=== PATIENT | female | born 1980 | race Caucasian/White ===

== ENCOUNTER 2021-05-13 09:03 | Emergency (ER) | payer MEDICAID ==
[~2021-05-13] VITALS: Ht 154.9 cm; Wt 56.6 kg
--- NOTE | 2021-05-13 09:51 | Diagnostic Imaging Report ---
INDICATION: Chest pain and chest tightness. TIME OF EXAM: 9:36 AM No prior studies are available for comparison. FINDINGS: The heart size is normal. The pulmonary vascularity is unremarkable. The lungs are clear. No infiltrate, effusion or pneumothorax is detected. IMPRESSION: No acute cardiopulmonary process is detected. Dictated by: Dictated on workstation # [id number]
[2021-05-13] MEDS ORDERED: RT-ALBUTEROL HFA 8.5 GM INHALER IH ONE (09:56)
[2021-05-13] MEDS ORDERED: RT-ALBUTEROL HFA 8.5 GM INHALER IH STA (09:57)
[2021-05-13 10:11] LABS: BASOPHILS % (AUTO) 1 % (0-10); EOSINOPHILS % (AUTO) 0 % (0-10); HEMATOCRIT 42 % (35-52); HEMOGLOBIN 13.7 g/dL (11.5-16.0); LYMPHOCYTES # (AUTO) 1.1 10^3/uL (1.0-4.0); LYMPHOCYTES % (AUTO) 21 % (12-44); MEAN CORPUSCULAR HEMOGLOBIN 32 pg (25-34); MEAN CORPUSCULAR HGB CONC 33 g/dL (32-36); MEAN CORPUSCULAR VOLUME 96 fL (80-99); MEAN PLATELET VOLUME 8.3 fL (9.0-12.2); MONOCYTES # (AUTO) 0.6 10^3/uL (0.0-1.0); MONOCYTES % (AUTO) 11 % (0-12); NEUTROPHILS # (AUTO) 3.6 10^3/uL (1.8-7.8); NEUTROPHILS % (AUTO) 67 % (42-75); PLATELET COUNT 344 10^3/uL (130-400); WHITE BLOOD COUNT 5.4 10^3/uL (4.3-11.0)
[2021-05-13 10:16] LABS: ALBUMIN 4.2 GM/DL (3.2-4.5); POTASSIUM 4.4 MMOL/L (3.6-5.0)
[2021-05-13 10:19] LABS: TOTAL PROTEIN 7.3 GM/DL (6.4-8.2)
[2021-05-13 10:21] LABS: BILIRUBIN,TOTAL 0.2 MG/DL (0.1-1.0)
[2021-05-13 10:22] LABS: CREATININE SERUM 0.68 MG/DL (0.60-1.30)
[2021-05-13 10:25] LABS: MAGNESIUM 2.1 MG/DL (1.6-2.4)
[2021-05-13 10:29] LABS: PROTHROMBIN TIME PATIENT 13.5 SEC (12.2-14.7)
--- NOTE | 2021-05-13 11:12 | ED Chest Pain ---
General Chief Complaint: Chest Pain Stated Complaint: CHEST TIGHTNESS Nursing Triage Note: PT AMB TO RM 4 WITH COMPLAINT OF CHEST TIGHTNESS. STATES STARTED TUESDAY AFTER PLAYING IN THE PARK WITH CHILDREN. Source: patient Exam Limitations: no limitations History of Present Illness Date Seen by Provider: May 13, 2021 Time Seen by Provider: 09:12 Initial Comments This 41-year-old woman presents to the emergency room with complaints of chest tightness and discomfort, particularly with deep breathing. She first noticed this after playing at the park with her children 2 days ago. Symptoms have persisted. She denies any fever, chills, nausea, vomiting, diarrhea, or change in taste or smell. She has not been vaccinated for COVID-19 or influenza. Symptoms are worse when lying flat and she is not sleeping. She is a smoker but denies drug or alcohol use. She denies any significant health history. [facility] in [place] is her primary care office. She seems rather fidgety and anxious about her condition. Allergies and Home Medications Allergies Coded Allergies: No Known Drug Allergies (Unverified , 05/13/21) Patient Home Medication List Home Medication List Reviewed: Yes Oseltamivir Phosphate (Tamiflu) 75 Mg Cap, 75 MG PO BID Prescribed by: MARIO ABRAHAM on 05/13/21 1113 Prednisone (Prednisone) 20 Mg Tab, 40 MG PO DAILY Prescribed by: MARIO ABRAHAM on 05/13/21 1113 Review of Systems Review of Systems Constitutional: no symptoms reported EENTM: No Symptoms Reported Respiratory: See HPI Cardiovascular: See HPI Gastrointestinal: No Symptoms Reported Genitourinary: No Symptoms Reported Musculoskeletal: no symptoms reported Skin: no symptoms reported Psychiatric/Neurological: See HPI Endocrine: No Symptoms Reported Hematologic/Lymphatic: No Symptoms Reported Past Sqzekvu-Iefcni-Qiccqx Hx Patient Social History Tobacco Use?: Yes Tobacco type used: Cigarettes Smoking Status: Current Everyday Smoker Use of E-Cig and/or Vaping dev: No Substance use?: No Alcohol Use?: No Pt feels they are or have been: No Immunizations Up To Date Influenza Vaccine Up-to-Date: No; Not Current Past Medical History Surgeries: No Respiratory: No Cardiac: No Neurological: No : No Genitourinary: No Gastrointestinal: No Musculoskeletal: No Endocrine: No HEENT: No Cancer: No Psychosocial: No Integumentary: No Physical Exam Vital Signs Vital Signs - First Documented 12/22/21 09:13 Temp 36.9 Pulse 91 Resp 16 B/P (MAP) 123/53 (76) Pulse Ox 96 O2 Delivery Room Air Capillary Refill : Less Than 3 Seconds Height, Weight, BMI Height: '" Weight: lbs. oz. kg; 23.00 BMI Method: General Appearance: WD/WN, Anxious HEENT: PERRL/EOMI, TMs Normal, Normal ENT Inspection, Pharynx Normal Neck: Normal Inspection Respiratory: No Accessory Muscle Use, No Respiratory Distress; No Crackles; Wheezing, Other (Prolonged expiratory phase) Cardiovascular: Regular Rate, Rhythm, No Edema, No Murmur Gastrointestinal: Non Tender, Soft; No Distended Extremity: Normal Inspection, Non Tender, No Calf Tenderness, No Pedal Edema Neurologic/Psychiatric: Alert, Oriented x3, No Motor/Sensory Deficits, skein bleacher II- XII Norm as Tested, Other (Mildly anxious) Skin: Normal Color, Warm/Dry Progress/Results/Core Measures Results/Orders Lab Results Laboratory Tests Test 05/13/21 10:04 05/13/21 10:06 Range/Units White Blood Count 5.4 4.3-11.0 10^3/uL Red Blood Count 4.31 3.80-5.11 10^6/uL Hemoglobin 13.7 11.5-16.0 g/dL Hematocrit 42 35-52 % Mean Corpuscular Volume 96 80-99 fL Mean Corpuscular Hemoglobin 32 25-34 pg Mean Corpuscular Hemoglobin Concent 33 32-36 g/dL Red Cell Distribution Width 13.1 10.0-14.5 % Platelet Count 344 130-400 10^3/uL Mean Platelet Volume 8.3 L 9.0-12.2 fL Immature Granulocyte % (Auto) 0 % Neutrophils (%) (Auto) 67 42-75 % Lymphocytes (%) (Auto) 21 12-44 % Monocytes (%) (Auto) 11 0-12 % Eosinophils (%) (Auto) 0 0-10 % Basophils (%) (Auto) 1 0-10 % Neutrophils # (Auto) 3.6 1.8-7.8 10^3/uL Lymphocytes # (Auto) 1.1 1.0-4.0 10^3/uL Monocytes # (Auto) 0.6 0.0-1.0 10^3/uL Eosinophils # (Auto) 0.0 0.0-0.3 10^3/uL Basophils # (Auto) 0.0 0.0-0.1 10^3/uL Immature Granulocyte # (Auto) 0.0 0.0-0.1 10^3/uL Prothrombin Time 13.5 12.2-14.7 SEC INR Comment 1.0 0.8-1.4 Activated Partial Thromboplast Time 31 24-35 SEC D-Dimer < 0.27 0.00-0.49 UG/ML Sodium Level 137 135-145 MMOL/L Potassium Level 4.4 3.6-5.0 MMOL/L Chloride Level 105 98-107 MMOL/L Carbon Dioxide Level 22 21-32 MMOL/L Anion Gap 10 5-14 MMOL/L Blood Urea Nitrogen 7 7-18 MG/DL Creatinine 0.68 0.60-1.30 MG/DL Estimat Glomerular Filtration Rate 94 BUN/Creatinine Ratio 10 Glucose Level 77 70-105 MG/DL Calcium Level 9.0 8.5-10.1 MG/DL Corrected Calcium 8.8 8.5-10.1 MG/DL Magnesium Level 2.1 1.6-2.4 MG/DL Total Bilirubin 0.2 0.1-1.0 MG/DL Aspartate Amino Transf (AST/SGOT) 22 5-34 U/L Alanine Aminotransferase (ALT/SGPT) 19 0-55 U/L Alkaline Phosphatase 56 40-136 U/L Myoglobin 29.5 10.0-92.0 NG/ML Troponin I < 0.028 <0.028 NG/ML C-Reactive Protein High Sensitivity 1.75 H 0.00-0.50 MG/DL B-Type Natriuretic Peptide 33.7 <100.0 PG/ML Total Protein 7.3 6.4-8.2 GM/DL Albumin 4.2 3.2-4.5 GM/DL Serum Test, Qualitative NEGATIVE NEGATIVE Influenza Type A (RT-PCR) Detected H Not Detecte Influenza Type B (RT-PCR) Not Detected Not Detecte SARS-CoV-2 RNA (RT-PCR) Not Detected Not Detecte My Orders Orders - MARIO SHAW MD Cbc With Automated Diff (05/13/21 09:12) Magnesium (05/13/21 09:12) Chest 1 View, Ap/Pa Only (05/13/21 09:12) Ekg Tracing (05/13/21 09:12) Comprehensive Metabolic Panel (05/13/21 09:12) Myoglobin Serum (05/13/21 09:12) Protime With Inr (05/13/21 09:12) Partial Thromboplastin Time (05/13/21 09:12) O2 (05/13/21 09:12) Monitor-Rhythm Ecg Trace Only (05/13/21 09:12) Ed Iv/Invasive Line Start (05/13/21 09:12) Troponin I Oriana (05/13/21 09:12) Albuterol Inhaler (Albuterol) (05/13/21 09:57) Covid 19 Inhouse Test (05/13/21 09:57) Influenza A And B By Pcr (05/13/21 09:57) Bnp Oriana (05/13/21 09:57) Hs C Reactive Protein (05/13/21 09:57) Fibrin Degradation Products (05/13/21 09:57) Hcg,Qualitative Serum (05/13/21 09:57) Albuterol Inhaler (Albuterol) (05/13/21 09:56) Ketorolac Injection (Toradol Injection) (05/13/21 11:15) Medications Given in ED Current Medications Medications Dose Ordered Sig/Oskar Route Start Time Stop Time Status Last Admin Dose Admin Ketorolac Tromethamine 30 mg ONCE ONCE IVP 05/13/21 11:15 05/13/21 11:16 DC 05/13/21 11:23 30 MG Vital Signs/I&O 05/13/21 05/13/21 09:13 11:28 Temp 36.9 Pulse 91 86 Resp 16 16 B/P (MAP) 123/53 (76) 128/50 Pulse Ox 96 96 O2 Delivery Room Air Room Air Blood Pressure Mean: 76 Progress Progress Note : Progress Note Patient appeared to have bronchospasm on exam. Inhaler was used and did improve her breathing. Cardiac work-up was unremarkable. Influenza a was detected on nasal swabs. Patient was offered Tamiflu which was prescribed. She was sent home with the inhaler. Steroids were additionally prescribed. Patient was encouraged to get vaccination for COVID-19 and to quit smoking. Initial ECG Impression Date: May 13, 2021 Initial ECG Impression Time: 09:29 Initial ECG Rate: 81 Initial ECG Rhythm: Normal Sinus Initial ECG Intervals: Normal Comment Sinus rhythm with subtle ST changes likely representing early repolarization in this young patient. No abnormal intervals or axis deviation. No diagnostic ischemic ST elevation or depression. Diagnostic Imaging Diagonstic Imaging: Xray Plain Films/CT/US/NM/MRI: chest Departure Impression Primary Impression: Influenza A Additional Impressions: Chest pain, pleuritic Bronchospasm Disposition: 01 HOME, SELF-CARE Condition: Improved Departure-Patient Inst. Decision time for Depature: 11:00 Referrals: [facility] (PCP/Family) Primary Care Physician Patient Instructions: Flu Add. Discharge Instructions: Drink plenty of clear liquids to stay well-hydrated. You may take ibuprofen up to 600 mg every 6 hours and/or Tylenol (acetaminophen) up to 1000 mg every 6 hours as needed for pain, fever, or chest discomfort. Use your inhaler up to 4 puffs in a 4-hour period of time for shortness of breath or wheezing. Complete the entire 10 doses of Tamiflu. Take all of the doses even if you are feeling better to avoid rebounding symptoms. Avoid contact with others to avoid transmitting the flu virus. Work toward quitting smoking as rapidly as possible. Seek assistance from your primary care provider if you need help. Consider obtaining Covid and influenza vaccines when you recover from this acute illness. Call with questions or concerns. Return to the ER if you have worsening symptoms. All discharge instructions reviewed with patient and/or family. Voiced understanding. Scripts Prednisone (Prednisone) 20 Mg Tab 40 MG PO DAILY, #6 TAB 0 Refills Prov: MARIO SHAW MD 05/13/21 Oseltamivir Phosphate (Tamiflu) 75 Mg Cap 75 MG PO BID, #10 CAP Prov: MARIO SHAW MD 05/13/21 Copy Copies To 1: ILANA CHAMPION JOSHUA T MD May 13, 2021 11:12
[2021-05-13] MEDS ORDERED: OSLT75C PO (11:13)
[2021-05-13] MEDS ORDERED: PRD20T PO (11:13)
[2021-05-13] MEDS ORDERED: KETOROLAC 30 MG/ML VIAL IVP ONE (11:15)
[2021-05-13 11:28] VITALS: BP 128/50
== END 2021-05-13 11:28 | disposition home or self-care (01) ==
LOC: ER 09:05
DX: J10.1 Influenza due to other identified influenza virus with other respiratory manifestations (principal); R07.81 Pleurodynia; J98.01 Acute bronchospasm; F17.210 Nicotine dependence, cigarettes, uncomplicated; Z20.822 Contact with and (suspected) exposure to COVID-19
CPT/HCPCS: 36415; 71045; 80053; 83735; 83874; 83880; 84484; 84703; 85025; 85379; 85610; 85730; 86141; 87636; 93005

== ENCOUNTER 2021-09-30 08:32 | Emergency (ER) | payer MEDICAID ==
[~2021-09-30] VITALS: Ht 157 cm; Wt 56.0 kg
[~2021-09-30 08:32] MED LIST: OSLT75C PO; PRD20T PO
--- NOTE | 2021-09-30 09:04 | ED Back Pain ---
General Chief Complaint: Back Problems Stated Complaint: PINCH NERVE Nursing Triage Note: ARRIVED VIA WC TO ROOM 09 WITH RIGHT SIDED LOWER BACK PAIN STARTING YESTERDAY AM. SHE THINKS SHE HAS PINCHED NERVE IN HER BACK. Source of Information: Patient History of Present Illness Date Seen by Provider: September 30, 2021 Time Seen by Provider: 08:55 Initial Comments PT ARRIVES VIA POV FROM HOME C/O RIGHT LOWER BACK PAIN AND LOWER LUMBAR PAIN SINCE YESTERDAY MORNING, ON WAKING NO RADIATION OF PAIN NO PARESTHESIAS OR MOTOR DEFICITS NO LOSS OF BOWEL OR BLADDER CONTROL NO URINARY SYMPTOMS NO NAUSEA/VOMITING NO INJURY OR UNUSUAL ACTIVITY. NO HISTORY OF SIMILAR NO CHRONIC MEDICAL PROBLEMS NO RELIEF WITH IBUPROFEN AT 0400 THIS AM LMP--ENDED YESTERDAY. NORMAL. NO CONTROL Other Comments PCP: [facility] Allergies and Home Medications Allergies Coded Allergies: No Known Drug Allergies (Unverified , 05/13/21) Patient Home Medication List Nitrofurantoin Monohyd/M-Cryst (Macrobid 100 mg Capsule) 100 Mg Capsule, 1 TAB PO BID Prescribed by: NIDHI AVILA on 09/30/21 0957 Oseltamivir Phosphate (Tamiflu) 75 Mg Cap, 75 MG PO BID Prescribed by: MARIO ABRAHAM on 05/13/21 111 Prednisone (Prednisone) 20 Mg Tab, 40 MG PO DAILY Prescribed by: MARIO ABRAHAM on 05/13/21 111 Prednisone (Prednisone) 10 Mg Tab.ds.pk, 10 MG PO DAILY Prescribed by: NIDHI AVILA on 09/30/2157 Tizanidine HCl (Zanaflex) 4 Mg Capsule, 4 MG PO TID Prescribed by: NIDHI AVILA on 09/30/21 0957 Review of Systems Constitutional: no symptoms reported Respiratory: no symptoms reported Cardiovascular: no symptoms reported Gastrointestinal: no symptoms reported Genitourinary: no symptoms reported : No LMP: September 23, 2021 Control/STD Prophylaxis: None Musculoskeletal: see HPI, back pain Skin: no symptoms reported Psychiatric/Neurological: No Symptoms Reported Past Nshetxb-Npbwyp-Kggtmq Hx Patient Social History Tobacco Use?: Yes Tobacco type used: Cigarettes Smoking Status: Current Everyday Smoker Substance use?: No Alcohol Use?: Yes Alcohol Frequency: Once in a while Past Medical History Surgeries: No Respiratory: No Cardiac: No Neurological: No Genitourinary: No Gastrointestinal: No Musculoskeletal: No Endocrine: No HEENT: No Cancer: No Psychosocial: No Integumentary: No Blood Disorders: No Physical Exam Vital Signs Vital Signs - First Documented 09/30/21 08:45 Temp 36.1 Pulse 91 Resp 16 B/P (MAP) 98/70 (79) Pulse Ox 95 O2 Delivery Room Air Capillary Refill : Less Than 3 Seconds Height, Weight, BMI Height: '" Weight: lbs. oz. kg; 22.00 BMI Method: General Appearance: WD/WN, Other (LOOKS UNCOMFORTABLY, LAYING PARTIALLY ON LEFT SIDE. ) Neck: Normal Inspection Cardiovascular: Regular Rate, Rhythm, No Murmur Respiratory: Normal Breath Sounds Gastrointestinal: Non Tender, Soft Back: Other (LOWER LUMBAR TENDERNESS, AND PIN POINT TENDERNESS OVER RIGHT SI JOINT. ) Neurologic/Psychiatric: Alert, Oriented x3, No Motor/Sensory Deficits, colorer machine II- XII Norm as Tested Skin: Normal Color, Warm/Dry; No Rash; Tattoos/Piercings (MULITPLE TATTOOS) Progress/Results/Core Measures Results/Orders Lab Results Laboratory Tests Test 09/30/21 08:58 09/30/21 09:06 Range/Units Urine Color YELLOW Urine Clarity CLEAR Urine pH 6.5 5-9 Urine Specific Thoreau <=1.005 1.016-1.022 Urine Protein NEGATIVE NEGATIVE Urine Glucose (UA) NEGATIVE NEGATIVE Urine Ketones NEGATIVE NEGATIVE Urine Nitrite NEGATIVE NEGATIVE Urine Bilirubin NEGATIVE NEGATIVE Urine Urobilinogen 0.2 < = 1.0 MG/DL Urine Leukocyte Esterase NEGATIVE NEGATIVE Urine RBC (Auto) 1+ H NEGATIVE Urine RBC 5-10 H /HPF Urine WBC 0-2 /HPF Urine Squamous Epithelial Cells 5-10 /HPF Urine Crystals NONE /LPF Urine Bacteria MODERATE H /HPF Urine Casts NONE /LPF Urine Mucus NEGATIVE /LPF Urine Culture Indicated YES Urine Test NEGATIVE NEGATIVE White Blood Count 8.6 4.3-11.0 10^3/uL Red Blood Count 4.59 3.80-5.11 10^6/uL Hemoglobin 14.4 11.5-16.0 g/dL Hematocrit 43 35-52 % Mean Corpuscular Volume 94 80-99 fL Mean Corpuscular Hemoglobin 31 25-34 pg Mean Corpuscular Hemoglobin Concent 33 32-36 g/dL Red Cell Distribution Width 13.1 10.0-14.5 % Platelet Count 458 H 130-400 10^3/uL Mean Platelet Volume 8.2 L 9.0-12.2 fL Immature Granulocyte % (Auto) 0 % Neutrophils (%) (Auto) 61 42-75 % Lymphocytes (%) (Auto) 33 12-44 % Monocytes (%) (Auto) 5 0-12 % Eosinophils (%) (Auto) 0 0-10 % Basophils (%) (Auto) 1 0-10 % Neutrophils # (Auto) 5.2 1.8-7.8 10^3/uL Lymphocytes # (Auto) 2.8 1.0-4.0 10^3/uL Monocytes # (Auto) 0.4 0.0-1.0 10^3/uL Eosinophils # (Auto) 0.0 0.0-0.3 10^3/uL Basophils # (Auto) 0.1 0.0-0.1 10^3/uL Immature Granulocyte # (Auto) 0.0 0.0-0.1 10^3/uL Sodium Level 140 135-145 MMOL/L Potassium Level 4.2 3.6-5.0 MMOL/L Chloride Level 106 98-107 MMOL/L Carbon Dioxide Level 25 21-32 MMOL/L Anion Gap 9 5-14 MMOL/L Blood Urea Nitrogen 14 7-18 MG/DL Creatinine 0.75 0.60-1.30 MG/DL Estimat Glomerular Filtration Rate 101 BUN/Creatinine Ratio 19 Glucose Level 85 70-105 MG/DL Calcium Level 9.6 8.5-10.1 MG/DL Corrected Calcium 9.2 8.5-10.1 MG/DL Total Bilirubin 0.3 0.1-1.0 MG/DL Aspartate Amino Transf (AST/SGOT) 15 5-34 U/L Alanine Aminotransferase (ALT/SGPT) 15 0-55 U/L Alkaline Phosphatase 58 40-136 U/L Total Protein 7.5 6.4-8.2 GM/DL Albumin 4.5 3.2-4.5 GM/DL My Orders Orders - NIDHI AVILA DO Urine Bedside (09/30/21 08:55) Ua Culture If Indicated (09/30/21 08:55) Ed Iv/Invasive Line Start (09/30/21 08:58) Cbc With Automated Diff (09/30/21 08:58) Comprehensive Metabolic Panel (09/30/21 08:58) Drug Screen Stat (Urine) (09/30/21 08:58) Hcg,Qualitative Urine (09/30/21 08:58) Urine Culture (09/30/21 08:58) Ct Abd/Pelvis Wo(Kidney Stone) (09/30/21 09:14) Ct Lumbar Spine Wo (09/30/21 09:14) Ketorolac Injection (Toradol Injection) (09/30/21 09:30) Orphenadrine Inj (Ed Only) (Norflex Inje (09/30/21 09:30) Medications Given in ED Current Medications Medications Dose Ordered Sig/Oskar Route Start Time Stop Time Status Last Admin Dose Admin Ketorolac Tromethamine 30 mg ONCE ONCE IVP 09/30/21 09:30 09/30/21 09:31 DC 09/30/21 09:36 30 MG Orphenadrine Citrate 60 mg ONCE ONCE IV 09/30/21 09:30 09/30/21 09:31 DC 09/30/21 09:36 60 MG Vital Signs/I&O 09/30/21 08:45 Temp 36.1 Pulse 91 Resp 16 B/P (MAP) 98/70 (79) Pulse Ox 95 O2 Delivery Room Air Blood Pressure Mean: 79 Departure Impression Primary Impression: Lumbar degenerative disc disease Additional Impression: UTI (urinary tract infection) Disposition: 01 HOME, SELF-CARE Condition: Stable Departure-Patient Inst. Decision time for Depature: 09:55 Referrals: [facility] (PCP/Family) Primary Care Physician Patient Instructions: Urinary Tract Infection, Adult ED, Degenerative Disc Disease (DC) Add. Discharge Instructions: ALTERNATE ICE AND HEAT TO SORE AREA AT 20 MINUTE INTERVALS NO LIFTING OVER 5 LBS, NO TWISTING OR BENDING AT WAIST FOLLOW UP WITH [facility] IN 1-2 DAYS FOR FURTHER CARE--CALL TODAY TO SCHEDULE APPOINTMENT All discharge instructions reviewed with patient and/or family. Voiced understanding. Scripts Tramadol HCl (Ultram) 50 Mg Tablet 50 MG PO Q4H for Pain, #20 TAB Prov: TANISHA AVILAA K DO 09/30/21 Nitrofurantoin Monohyd/M-Cryst (Macrobid 100 mg Capsule) 100 Mg Capsule 1 TAB PO BID, #20 CAP Prov: MARGARITA,NIDHI K DO 09/30/21 Tizanidine HCl (Zanaflex) 4 Mg Capsule 4 MG PO TID for Spasms, #15 CAP Prov: NIDHI AVILA DO 09/30/21 Prednisone (Prednisone) 10 Mg Tab.ds.pk 10 MG PO DAILY, #42 EA Take 6 tabs(60mg)daily,decrease by 1 tab(10mg)every other day. Prov: NIDHI AVILA DO 09/30/21 NIDHI AVILA DO September 30, 2021 09:04
[2021-09-30 09:05] LABS: BILIRUBIN,URINE NEGATIVE (NEGATIVE); CLARITY,URINE CLEAR; COLOR,URINE YELLOW; GLUCOSE, URINE (UA) NEGATIVE (NEGATIVE); KETONES,URINE NEGATIVE (NEGATIVE); LEUKOCYTE ESTERASE ,URINE NEGATIVE (NEGATIVE); NITRITE,URINE NEGATIVE (NEGATIVE); PH,URINE 6.5 (5-9); PROTEIN,URINE NEGATIVE (NEGATIVE)
[2021-09-30 09:12] LABS: WBC,URINE 0-2 /HPF
[2021-09-30 09:13] LABS: BACTERIA,URINE MODERATE /HPF
[2021-09-30 09:14] LABS: BASOPHILS # (AUTO) 0.1 10^3/uL (0.0-0.1); BASOPHILS % (AUTO) 1 % (0-10); EOSINOPHILS % (AUTO) 0 % (0-10); HEMATOCRIT 43 % (35-52); HEMOGLOBIN 14.4 g/dL (11.5-16.0); LYMPHOCYTES # (AUTO) 2.8 10^3/uL (1.0-4.0); LYMPHOCYTES % (AUTO) 33 % (12-44); MEAN CORPUSCULAR HEMOGLOBIN 31 pg (25-34); MEAN CORPUSCULAR HGB CONC 33 g/dL (32-36); MEAN CORPUSCULAR VOLUME 94 fL (80-99); MEAN PLATELET VOLUME 8.2 fL (9.0-12.2); MONOCYTES # (AUTO) 0.4 10^3/uL (0.0-1.0); MONOCYTES % (AUTO) 5 % (0-12); NEUTROPHILS # (AUTO) 5.2 10^3/uL (1.8-7.8); NEUTROPHILS % (AUTO) 61 % (42-75); PLATELET COUNT 458 10^3/uL (130-400); WHITE BLOOD COUNT 8.6 10^3/uL (4.3-11.0)
[2021-09-30 09:27] LABS: ALBUMIN 4.5 GM/DL (3.2-4.5); POTASSIUM 4.2 MMOL/L (3.6-5.0)
[2021-09-30 09:28] LABS: CALCIUM 9.6 MG/DL (8.5-10.1)
[2021-09-30 09:30] LABS: TOTAL PROTEIN 7.5 GM/DL (6.4-8.2)
[2021-09-30] MEDS ORDERED: KETOROLAC 30 MG/ML VIAL IVP ONE (09:30)
[2021-09-30] MEDS ORDERED: ORPHENADRINE 60 MG/2 ML (NORFLEX) AMP (ED ONLY) IV ONE (09:30)
[2021-09-30 09:31] LABS: BILIRUBIN,TOTAL 0.3 MG/DL (0.1-1.0)
[2021-09-30 09:33] LABS: CREATININE SERUM 0.75 MG/DL (0.60-1.30)
--- NOTE | 2021-09-30 09:42 | Diagnostic Imaging Report ---
PROCEDURE: CT lumbar spine without contrast. TECHNIQUE: Multiple contiguous axial images were obtained through the lumbar spine without the use of intravenous contrast. Sagittal and coronal reformations were then performed. Auto Exposure Controls were utilized during the CT exam to meet ALARA standards for radiation dose reduction. INDICATION: Flank pain. FINDINGS: Kidneys are almost entirely in the hkyhl-ru-pvmw. There is a partially visualized exophytic right renal cystic appearing lesion but no radiopaque urinary tract stone. There is no hydroureteronephrosis. The bladder below the bbceu-uw-jokm. The aorta is nonaneurysmal. No paravertebral mass, hemorrhage or fluid collection. Lumbar statures are normal. The alignment anatomic. The pedicles and pars are intact. Osteophyte disc material at L2-L3 results in no significant canal or foraminal stenosis. Minimal degenerative changes at L3-L4 and L4-L5 also without stenosis. Substantial degenerative changes at the L5-S1 with the disc space narrowing, endplate sclerosis, and marginal osteophytes. Findings result in no significant canal stenosis, however, result in wqtozccz-tj-gpbxgv left and tybw-mc-ponetbdj right neural foraminal narrowing. IMPRESSION: 1. Normal alignment. No acute lumbar pathology. No fracture identified. 2. Degenerative changes greatest at the L5-S1 levels result in left greater than right foraminal stenoses on a chronic basis. 3. Cystic lesion right kidney partially visualized. Dictated by: Dictated on workstation # [id number]
--- NOTE | 2021-09-30 09:44 | Diagnostic Imaging Report ---
PROCEDURE: CT urinary tract, rule out kidney stone. TECHNIQUE: Multiple contiguous axial images were obtained through the abdomen and pelvis without the use of intravenous contrast. Auto Exposure Controls were utilized during the CT exam to meet ALARA standards for radiation dose reduction. INDICATION: Right-sided low back pain beginning yesterday. Right flank pain. Suspect kidney stones. COMPARISON: None FINDINGS: There is dependent atelectasis in the lung bases. The heart is normal in size. The liver demonstrates no focal lesions on this noncontrast exam. The spleen appears normal. The pancreas is unremarkable. The adrenal glands appear normal. The right kidney has a simple appearing cyst which measures 3.5 cm in diameter. There is no hydronephrosis. No obstructing calculi are seen in the kidneys bilaterally. The bowel loops are nondistended without obstruction. The appendix is normal. The colon wall appears mildly thick, but this is felt to be due to nondistention. No free fluid or free air is seen. There is mild calcific atherosclerosis, somewhat greater than expected for age. No acute osseous abnormality is seen. There are degenerative changes at L5-S1. Please refer to separate CT of the lumbar spine. IMPRESSION: 1. No renal calculi or hydronephrosis. Simple appearing cyst in the right kidney. 2. Mild calcific atherosclerosis, greater than expected for age. Dictated by: Dictated on workstation # [id number]
[2021-09-30 09:50] LABS: HCG,QUALITATIVE URINE NEGATIVE (NEGATIVE)
[2021-09-30] MEDS ORDERED: PRED10TA22 PO (09:57)
[2021-09-30] MEDS ORDERED: NITR-65 PO (09:57)
[2021-09-30] MEDS ORDERED: TIZA4CAP PO (09:57)
[2021-09-30 09:58] LABS: AMPHETAMINE SCREEN, URINE NEGATIVE (NEGATIVE); BARBITURATE SCREEN URINE NEGATIVE (NEGATIVE); BENZODIAZEPINES SCREEN URINE NEGATIVE (NEGATIVE); CANNABINOID SCREEN, URINE POSITIVE (NEGATIVE); COCAINE SCREEN URINE NEGATIVE (NEGATIVE); METHADONE STAT NEGATIVE (NEGATIVE); OPIATE SCREEN URINE NEGATIVE (NEGATIVE); OXYCODONE STAT NEGATIVE (NEGATIVE); PROPOXYPHENE STAT NEGATIVE (NEGATIVE); TRICYCLIC ANTIDEPRESSANTS SCRE NEGATIVE (NEGATIVE)
[2021-09-30] MEDS ORDERED: TRAM-42 PO (09:58)
[2021-09-30] MEDS ORDERED: fentaNYL INJ 100 MCG/2 ML AMP IVP ONE (10:15)
[2021-09-30 10:58] VITALS: BP 99/47
== END 2021-09-30 10:58 | disposition home or self-care (01) ==
LOC: EDUNIT# 08:32 → ER 08:34
DX: M51.36 Other intervertebral disc degeneration, lumbar region (principal); N39.0 Urinary tract infection, site not specified; F17.210 Nicotine dependence, cigarettes, uncomplicated; Z32.02 Encounter for pregnancy test, result negative
CPT/HCPCS: 36415; 72131; 74176; 80053; 80306; 81000; 84703; 85025; 87088

== ENCOUNTER 2022-08-12 20:06 | Emergency (ER) | payer MEDICAID ==
[~2022-08-12 20:06] MED LIST changes: +NITR-65 PO; +PRED10TA22 PO; +TIZA4CAP PO; +TRAM-42 PO
[2022-08-12 20:30] LABS: BASOPHILS % (AUTO) 0 % (0-10); EOSINOPHILS # (AUTO) 0.3 10^3/uL (0.0-0.3); EOSINOPHILS % (AUTO) 3 % (0-10); HEMATOCRIT 38 % (35-52); HEMOGLOBIN 13.1 g/dL (11.5-16.0); LYMPHOCYTES # (AUTO) 3.9 10^3/uL (1.0-4.0); LYMPHOCYTES % (AUTO) 39 % (12-44); MEAN CORPUSCULAR HEMOGLOBIN 32 pg (25-34); MEAN CORPUSCULAR HGB CONC 34 g/dL (32-36); MEAN CORPUSCULAR VOLUME 92 fL (80-99); MEAN PLATELET VOLUME 8.5 fL (9.0-12.2); MONOCYTES # (AUTO) 0.7 10^3/uL (0.0-1.0); MONOCYTES % (AUTO) 7 % (0-12); NEUTROPHILS # (AUTO) 5.1 10^3/uL (1.8-7.8); NEUTROPHILS % (AUTO) 51 % (42-75); PLATELET COUNT 344 10^3/uL (130-400)
[2022-08-12] MEDS ORDERED: ONDANSETRON 4 MG/2 ML (SDV) Z0FRAN IVP ONE (20:45)
[2022-08-12] MEDS ORDERED: LACTATED RINGERS 1,000 ML IV ONE ×2 (20:45→22:30)
[2022-08-12 20:49] LABS: ALANINE AMINOTRANSFERASE 18 U/L (0-55); ALBUMIN 4.3 GM/DL (3.2-4.5); ALKALINE PHOSPHATASE 46 U/L (40-136); BILIRUBIN,TOTAL 0.4 MG/DL (0.1-1.0); BUN/CREATININE RATIO 18; CALCIUM 9.2 MG/DL (8.5-10.1); CARBON DIOXIDE 21 MMOL/L (21-32); CHLORIDE 105 MMOL/L (98-107); CREATININE SERUM 0.74 MG/DL (0.60-1.30); GFR ESTIMATED 102; GLUCOSE 134 MG/DL (70-105); POTASSIUM 3.6 MMOL/L (3.6-5.0); SODIUM 138 MMOL/L (135-145); TOTAL PROTEIN 6.8 GM/DL (6.4-8.2)
--- NOTE | 2022-08-12 20:52 | ED General ---
General Chief Complaint: Chest Pain Stated Complaint: BODY DOESN'T FEEL RIGHT Nursing Triage Note: PT TO RM 6 BY WITH C/O "NOT FEELING RIGHT" SINCE ABOUT 1 HOUR MANAGER TREASURY. PT STATES HER LEGS FEEL "FUNNY", DIZZINESS, CHEST TIGHTNESS, AND NAUSEA WHEN STANDING. PT BENT OVER IN WC PRIOR TO TRIAGE. PT REPORTS HAS TOOTH ABCESS/PAIN AND TAKES AMOXICILLIN, IS SCHEDULED TO SEE DENTIST. PT CRYING AT TIME OF TRIAGE. Source of Information: Patient History of Present Illness Date Seen by Provider: Aug 12, 2022 Time Seen by Provider: 20:17 Initial Comments PT ARRIVES VIA POV FROM HOME, WITH A MALE, WANTS WHEELCHAIR ON ARRIVAL PT STATES SHE FELT FINE AT WORK TODAY, CAME HOME, AND THEN STARTED HAVING SUDDEN SEVERE PAIN IN HER TOOTH STATES SHE HAS CHRONIC DENTAL PROBLEMS AND LEFT LOWER MOLAR TOOTH OR TEETH "BROKE OFF" A FEW WEEKS AGO. SHE HAS AN APPOINTMENT 08/25/22 WITH UNKNOWN DENTIST. SHE STARTED TAKING LEFT OVER AMOXIL FROM PRIOR PROBLEM WITH THIS TOOTH/TEETH. TOOK 1 DOSE TONIGHT JUST PRIOR TO ARRIVAL ( PER MED RECONCILIATION, AMOXIL PRESCRIBED 07/16/22 BY [facility] [employer] SUPERVISOR AT [facility] ) SHE ALSO TOOK IBUPROFEN 1 HOUR AGO. SHE HAS TAKEN BOTH OF THESE MEDICATIONS MANY TIMES AND NEVER HAD PROBLEMS AFTER HER TOOTH STARTED HURTING, SHE BEGAN TO "FEEL FUNNY ALL OVER" STATES "MY BODY JUST DOESN'T FEEL RIGHT" STATES " MY LEGS FEEL WARM, AND SOMETIMES IT FEELS A LITTLE TINGLY IN MY CALVES AND FEET" THEN SHE STARTED FEELING NAUSEATED, NO VOMITING. NO DIARRHEA. NO ABDOMINAL PAIN STATES SHE STARTED FEELING DIZZY AND ON ARRIVAL STATES HER CHEST IS NOW STARTING TO FEEL A LITTLE TIGHT. PT IS CRYING UNCONTROLLABLY AND HYPERVENTILATING AND NEAR-HYSTERIA ON ARRIVAL. SHE ARRIVES LEANING OVER THE SIDE OF THE WHEELCHAIR SHE HAS NOT BEEN ILL IN ANY OTHER WAY RECENTLY. SHE DENIES ANY CHRONIC MEDICAL PROBLEMS, AND DOES NOT TAKE ANY DAILY MEDICATIONS LMP--2-3 WEEKS AGO, NORMAL. NO CONTROL. PCP: [facility] Allergies and Home Medications Allergies Coded Allergies: No Known Drug Allergies (Unverified , 05/13/21) Patient Home Medication List Amoxicillin (Amoxicillin) 875 Mg Tablet, 875 MG PO BID Prescribed by: NIDHI AVILA on 08/12/22 0058 Hydroxyzine Pamoate (Hydroxyzine Pamoate) 50 Mg Capsule, 50 MG PO Q6H PRN for ANXIETY Prescribed by: NIDHI AVILA on 08/12/222237 Nitrofurantoin Monohyd/M-Cryst (Macrobid 100 mg Capsule) 100 Mg Capsule, 1 TAB PO BID Prescribed by: NIDHI AVILA on 09/30/21 09 Oseltamivir Phosphate (Tamiflu) 75 Mg Cap, 75 MG PO BID Prescribed by: MARIO ABRAHAM on 05/13/21 111 Prednisone (Prednisone) 20 Mg Tab, 40 MG PO DAILY Prescribed by: MARIO ABRAHAM on 05/13/21 111 Prednisone (Prednisone) 10 Mg Tab.ds.pk, 10 MG PO DAILY Prescribed by: NIDHI AVILA on 09/30/21956 Tizanidine HCl (Zanaflex) 4 Mg Capsule, 4 MG PO TID Prescribed by: NIDHI AVILA on 09/30/2157 Tramadol HCl (Ultram) 50 Mg Tablet, 50 MG PO Q4H Prescribed by: NIDHI AVILA on 09/30/21 0958 Past Pdcsrlf-Zhelor-Lunauc Hx Patient Social History Tobacco Use?: Yes Tobacco type used: Cigarettes Smoking Status: Current Everyday Smoker Substance use?: Yes Substance type: Marijuana Alcohol Use?: No Pt feels they are or have been: No Past Medical History Surgeries: No Respiratory: No Cardiac: No Neurological: No Genitourinary: No Gastrointestinal: No Musculoskeletal: No Endocrine: No HEENT: No Cancer: No Psychosocial: No Integumentary: No Blood Disorders: No Physical Exam Vital Signs Vital Signs - First Documented 08/12/22 20:16 Pulse 84 Resp 22 B/P (MAP) 143/100 (114) Pulse Ox 99 O2 Delivery Room Air Capillary Refill : Less Than 3 Seconds Height, Weight, BMI Height: '" Weight: lbs. oz. kg; BMI Method: General Appearance: Other (BEHAVIOR NOTED ABOVE. PT WITH RAPID, ERRATIC SPEECH, SOMEWHAT TANGENTIAL. CRYING UNCONTROLLABLY AND HYPERVENTILATING. CONSTANT MOVEMENTS. . KEEPS EYES CLOSED, DOES NOT MAKE EYE CONTACT AT ANY TIME. 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 Skin: Normal Color, Warm/Dry; No Rash; Tattoos/Piercings Progress/Results/Core Measures Suspected Sepsis SIRS Temperature: Pulse: 84 Respiratory Rate: 22 Laboratory Tests 08/12/22 20:25: White Blood Count 10.0 Blood Pressure 143 /100 Mean: 114 Laboratory Tests 08/12/22 20:25: Creatinine 0.74, Platelet Count 344, Total Bilirubin 0.4 Results/Orders Lab Results Laboratory Tests Test 08/12/22 20:25 08/12/22 20:47 08/12/22 21:04 Range/Units White Blood Count 10.0 4.3-11.0 10^3/uL Red Blood Count 4.14 3.80-5.11 10^6/uL Hemoglobin 13.1 11.5-16.0 g/dL Hematocrit 38 35-52 % Mean Corpuscular Volume 92 80-99 fL Mean Corpuscular Hemoglobin 32 25-34 pg Mean Corpuscular Hemoglobin Concent 34 32-36 g/dL Red Cell Distribution Width 12.8 10.0-14.5 % Platelet Count 344 130-400 10^3/uL Mean Platelet Volume 8.5 L 9.0-12.2 fL Immature Granulocyte % (Auto) 0 % Neutrophils (%) (Auto) 51 42-75 % Lymphocytes (%) (Auto) 39 12-44 % Monocytes (%) (Auto) 7 0-12 % Eosinophils (%) (Auto) 3 0-10 % Basophils (%) (Auto) 0 0-10 % Neutrophils # (Auto) 5.1 1.8-7.8 10^3/uL Lymphocytes # (Auto) 3.9 1.0-4.0 10^3/uL Monocytes # (Auto) 0.7 0.0-1.0 10^3/uL Eosinophils # (Auto) 0.3 0.0-0.3 10^3/uL Basophils # (Auto) 0.0 0.0-0.1 10^3/uL Immature Granulocyte # (Auto) 0.0 0.0-0.1 10^3/uL Sodium Level 138 135-145 MMOL/L Potassium Level 3.6 3.6-5.0 MMOL/L Chloride Level 105 98-107 MMOL/L Carbon Dioxide Level 21 21-32 MMOL/L Anion Gap 12 5-14 MMOL/L Blood Urea Nitrogen 13 7-18 MG/DL Creatinine 0.74 0.60-1.30 MG/DL Estimat Glomerular Filtration Rate 102 BUN/Creatinine Ratio 18 Glucose Level 134 H 70-105 MG/DL Calcium Level 9.2 8.5-10.1 MG/DL Corrected Calcium 9.0 8.5-10.1 MG/DL Magnesium Level 2.0 1.6-2.4 MG/DL Total Bilirubin 0.4 0.1-1.0 MG/DL Aspartate Amino Transf (AST/SGOT) 19 5-34 U/L Alanine Aminotransferase (ALT/SGPT) 18 0-55 U/L Alkaline Phosphatase 46 40-136 U/L Total Creatine Kinase 181 H 29-168 U/L Creatine Kinase MB 2.3 <6.6 NG/ML Myoglobin 30.2 10.0-92.0 NG/ML Troponin I < 0.028 <0.028 NG/ML Total Protein 6.8 6.4-8.2 GM/DL Albumin 4.3 3.2-4.5 GM/DL Free Thyroxine 1.12 0.70-1.48 NG/DL TSH [place] Testing 0.18 L 0.35-4.94 UIU/ML Serum Test, Qualitative NEGATIVE NEGATIVE Serum Alcohol < 10 <10 MG/DL Urine Color YELLOW Urine Clarity CLEAR Urine pH 7.0 5-9 Urine Specific [place] 1.020 1.016-1.022 Urine Protein TRACE H NEGATIVE Urine Glucose (UA) NEGATIVE NEGATIVE Urine Ketones NEGATIVE NEGATIVE Urine Nitrite NEGATIVE NEGATIVE Urine Bilirubin NEGATIVE NEGATIVE Urine Urobilinogen 1.0 < = 1.0 MG/DL Urine Leukocyte Esterase NEGATIVE NEGATIVE Urine RBC (Auto) NEGATIVE NEGATIVE Urine RBC NONE /HPF Urine WBC RARE /HPF Urine Squamous Epithelial Cells 25-50 H /HPF Urine Crystals PRESENT H /LPF Urine Amorphous Sediment LARGE [place] URATES H /LPF Urine Bacteria MODERATE H /HPF Urine Casts NONE /LPF Urine Mucus SMALL H /LPF Urine Culture Indicated YES Urine Opiates Screen NEGATIVE NEGATIVE Urine Oxycodone Screen NEGATIVE NEGATIVE Urine Methadone Screen NEGATIVE NEGATIVE Urine Propoxyphene Screen NEGATIVE NEGATIVE Urine Barbiturates Screen NEGATIVE NEGATIVE Ur Tricyclic Antidepressants Screen NEGATIVE NEGATIVE Urine Phencyclidine Screen NEGATIVE NEGATIVE Urine Amphetamines Screen NEGATIVE NEGATIVE Urine Methamphetamines Screen NEGATIVE NEGATIVE Urine Benzodiazepines Screen NEGATIVE NEGATIVE Urine Cocaine Screen NEGATIVE NEGATIVE Urine Cannabinoids Screen POSITIVE H NEGATIVE Influenza Type A (RT-PCR) Not Detected Not Detecte Influenza Type B (RT-PCR) Not Detected Not Detecte SARS-CoV-2 RNA (RT-PCR) Detected H Not Detecte My Orders Orders - NIDHI AVILA DO Ed Iv/Invasive Line Start (08/12/22 20:16) Urine Bedside (08/12/22 20:16) Monitor-Rhythm Ecg Trace Only (08/12/22 20:16) Alcohol (08/12/22 20:16) Cbc With Automated Diff (08/12/22 20:16) Comprehensive Metabolic Panel (08/12/22 20:16) Drug Screen Stat (Urine) (08/12/22 20:16) Magnesium (08/12/22 20:16) Thyroid Analyzer (08/12/22 20:16) Ua Culture If Indicated (08/12/22 20:16) Covid 19 Inhouse Test (08/12/22 20:16) Influenza A And B By Pcr (08/12/22 20:16) Isolation Central Supply Req (08/12/22 20:16) Ekg Tracing (08/12/22 20:22) Creatine Kinase (08/12/22 20:33) Creatine Kinase Mb (08/12/22 20:33) Myoglobin Serum (08/12/22 20:33) Troponin I [place] (08/12/22 20:33) Hcg,Qualitative Serum (08/12/22 20:33) Ed Iv/Invasive Line Start (08/12/22 20:33) Lactated Ringers (Lr 1000 Ml Iv Solution (08/12/22 20:45) Ondansetron Injection (Zofran Injectio (08/12/22 20:45) Ketorolac Injection (Toradol Injection) (08/12/22 21:15) Diphenhydramine Injection (Benadryl Inje (08/12/22 21:15) Free T4 (Free Thyroxine) (08/12/22 20:25) Urine Culture (08/12/22 20:47) Ed Iv/Invasive Line Start (08/12/22 22:19) Lactated Ringers (Lr 1000 Ml Iv Solution (08/12/22 22:30) Medications Given in ED Current Medications Medications Dose Ordered Sig/Oskar Route Start Time Stop Time Status Last Admin Dose Admin Diphenhydramine HCl 50 mg ONCE ONCE IVP 08/12/22 21:15 08/12/22 21:16 DC 08/12/22 21:16 50 MG Ketorolac Tromethamine 30 mg ONCE ONCE IVP 08/12/22 21:15 08/12/22 21:16 DC 08/12/22 21:16 30 MG Lactated Ringer's 1,000 ml @ 0 mls/hr Q0M ONCE IV 08/12/22 20:45 08/12/22 20:46 DC 08/12/22 20:50 1,000 MLS/HR Lactated Ringer's 1,000 ml @ 0 mls/hr Q0M ONCE IV 08/12/22 22:30 08/12/22 22:31 DC 08/12/22 22:35 0 MLS/HR Ondansetron HCl 4 mg ONCE ONCE IVP 08/12/22 20:45 08/12/22 20:46 DC 08/12/22 20:49 4 MG Vital Signs/I&O 08/12/22 20:16 Pulse 84 Resp 22 B/P (MAP) 143/100 (114) Pulse Ox 99 O2 Delivery Room Air Capillary Refill : Less Than 3 Seconds Blood Pressure Mean: 114 Progress Note : Progress Note GIVEN: -IV FLUIDS -ZOFRAN -TORADOL -BENADRYL NO COMPLAINTS OF CHEST PAIN FOR REMAINDER OF ER STAY VITALS STABLE SYMPTOMS IMPROVED AT DISMISSAL PT IS COVID + OTHER LABS ARE ALL REASSURING, AND NO EVIDENCE OF LIFE THREATENING PROCESS AT THIS TIME REVIEWED PRIOR RECORDS--2 ER VISITS, ON IN 2020 AND ONE IN 2021 FOR UNRELATED COMPLAINTS. DISCUSSED TEST RESULTS, SYMPTOMATIC TREATMENT, MEDICATIONS, NEED FOR FOLLOW UP AND RETURN PRECAUTIONS DISCUSSED WITH PT AND MALE IN ROOM. OFFERED PAXLOVID TREATMENT, AND PT DECLINES AT THIS TIME. ECG Initial ECG Impression Date: Aug 12, 2022 Initial ECG Impression Time: 20:30 Initial ECG Rate: 84 Initial ECG Rhythm: Normal Sinus Initial ECG Intervals TX 133 QRS 87 QT/QTC 363/404 Initial ECG Comparisson: No Previous ECG Available Comment INTERPRETED BY ME Departure Impression Primary Impression: COVID-19 virus infection Additional Impressions: Dental caries Anxiety hyperventilation Volume depletion Disposition: HOME, SELF-CARE Condition: Improved Departure-Patient Inst. Referrals: [facility] (PCP/Family) Primary Care Physician Patient Instructions: Anxiety, Adult ED, COVID-19 (DC), Dental Pain ED, Hyperventilation, Tooth Decay, Adult (DC), Dehydration, Adult ED Add. Discharge Instructions: HOME, REST LOTS OF CLEAR LIQUIDS--WATER, BROTH, JELLO, GATORADE DRINK ENOUGH SO YOU ARE URINATING EVERY 2-3 HOURS WHILE AWAKE YOU MAY TAKE TYLENOL 1 GRAM PLUS MOTRIN 800 MG 4 TIMES A DAY FOR PAIN OR FEVER YOU MAY TAKE OVER THE COUNTER COUGH AND COLD MEDICATIONS IF YOU DEVELOP THOSE SYMPTOMS QUARANTINE X 7 DAYS KEEP YOUR APPOINTMENT WITH DENTIST SCHEDULED RETURN TO ER IF SYMPTOMS WORSEN All discharge instructions reviewed with patient and/or family. Voiced understanding. Scripts Amoxicillin (Amoxicillin) 875 Mg Tablet 875 MG PO BID, #20 TAB Prov: NIDHI AVILA DO 08/12/22 Hydroxyzine Pamoate (Hydroxyzine Pamoate) 50 Mg Capsule 50 MG PO Q6H PRN for ANXIETY, #15 CAP Prov: NIDHI AVILA DO 08/12/22 Work/School Note: Work Release Form Date Seen in the Emergency Department: Aug 12, 2022 Return to Work: Aug 20, 2022 NIDHI AVILA DO Aug 12, 2022 20:52
[2022-08-12 20:53] LABS: BILIRUBIN,URINE NEGATIVE (NEGATIVE); CLARITY,URINE CLEAR; COLOR,URINE YELLOW; GLUCOSE, URINE (UA) NEGATIVE (NEGATIVE); KETONES,URINE NEGATIVE (NEGATIVE); LEUKOCYTE ESTERASE ,URINE NEGATIVE (NEGATIVE); NITRITE,URINE NEGATIVE (NEGATIVE); PROTEIN,URINE TRACE (NEGATIVE)
[2022-08-12 21:09] LABS: TSH (THYROID ANALYZER) 0.18 UIU/ML (0.35-4.94)
[2022-08-12] MEDS ORDERED: diphenhydrAMINE 50 MG/ML INJ (BENADRYL) IVP ONE (21:15)
[2022-08-12] MEDS ORDERED: KETOROLAC 30 MG/ML VIAL IVP ONE (21:15)
[2022-08-12 21:17] LABS: AMPHETAMINE SCREEN, URINE NEGATIVE (NEGATIVE); BARBITURATE SCREEN URINE NEGATIVE (NEGATIVE); BENZODIAZEPINES SCREEN URINE NEGATIVE (NEGATIVE); CANNABINOID SCREEN, URINE POSITIVE (NEGATIVE); COCAINE SCREEN URINE NEGATIVE (NEGATIVE); METHADONE STAT NEGATIVE (NEGATIVE); OPIATE SCREEN URINE NEGATIVE (NEGATIVE); OXYCODONE STAT NEGATIVE (NEGATIVE); PROPOXYPHENE STAT NEGATIVE (NEGATIVE); TRICYCLIC ANTIDEPRESSANTS SCRE NEGATIVE (NEGATIVE)
[2022-08-12 21:30] LABS: AMORPHOUS SEDIMENT,UR LARGE AMOR URATES /LPF; SQUAMOUS EPITHELIAL CELL,UR 25-50 /HPF; WBC,URINE RARE /HPF
[2022-08-12 21:31] LABS: CREATINE KINASE 181 U/L (29-168)
[2022-08-12 21:31] LABS: BACTERIA,URINE MODERATE /HPF
[2022-08-12 21:39] LABS: CREATINE KINASE MB 2.3 NG/ML (<6.6)
[2022-08-12 21:51] LABS: FREE T4 (FREE THYROXINE) 1.12 NG/DL (0.70-1.48)
[2022-08-12] MEDS ORDERED: AMOX875T2 PO (22:38)
[2022-08-12] MEDS ORDERED: HYDR50CA3 PO (22:38)
[2022-08-12 23:16] VITALS: BP 114/77
== END 2022-08-12 23:18 | disposition home or self-care (01) ==
LOC: EDUNIT# 20:06 → ER 20:08
DX: U07.1 COVID-19 (principal); K02.9 Dental caries, unspecified; E86.9 Volume depletion, unspecified; F45.8 Other somatoform disorders; F17.210 Nicotine dependence, cigarettes, uncomplicated; Z28.310 Unvaccinated for COVID-19
CPT/HCPCS: 80053; 80306; 81000; 82550; 82553; 83735; 83874; 84439; 84443; 84484; 84703 ×2; 85025; 87088; 87636; 93005; 93041; 99284; G0480; 36415; 80320

== ENCOUNTER 2022-08-20 20:09 | Emergency (ER) | payer MEDICAID ==
[~2022-08-20] VITALS: Ht 154.9 cm; Wt 52.2 kg
[~2022-08-20 20:09] MED LIST changes: +AMOX875T2 PO; +HYDR50CA3 PO
[2022-08-20 20:21] VITALS: BP 123/69
[2022-08-20] MEDS ORDERED: ACHD5005 PO (20:33)
--- NOTE | 2022-08-20 20:34 | ED EENT ---
History of Present Illness General Chief Complaint: Dental Problems/Pain Stated Complaint: DENTAL PAIN Source: patient Exam Limitations: no limitations History of Present Illness Date Seen by Provider: Aug 20, 2022 Time Seen by Provider: 20:29 Initial Comments Patient is a 42-year-old female presents ED for left upper jaw pain. Patient states she had 2 left lower molars extracted yesterday at [facility]. She started developing pain in her left upper jaw today. Patient thought she had some pus removed from the teeth. Denies of any gum swelling or redness. She did have sutures placed. She is concern for dry socket. Patient has been taking anti-inflammatories gargling salt water without much improvement. Denies any facial swelling or redness, fever, chills. Pain appears more in the left upper jaw. Denies fever, chills, nausea, vomit, diarrhea Allergies and Home Medications Allergies Coded Allergies: No Known Drug Allergies (Unverified , 05/13/21) Patient Home Medication List Home Medication List Reviewed: Yes Amoxicillin (Amoxicillin) 875 Mg Tablet, 875 MG PO BID Prescribed by: NIDHI AVILA on 08/12/222237 Hydrocodone/Acetaminophen (Hydrocodone-Acetamin 5-325 mg) 5 Mg-325 Mg Tablet, 1 TAB PO Q4H PRN for PAIN-MODERATE (5-7) Prescribed by: STALIN TEIXEIRA on 08/20/222033 Hydroxyzine Pamoate (Hydroxyzine Pamoate) 50 Mg Capsule, 50 MG PO Q6H PRN for ANXIETY Prescribed by: NIDHI AVILA on 08/12/222237 Nitrofurantoin Monohyd/M-Cryst (Macrobid 100 mg Capsule) 100 Mg Capsule, 1 TAB PO BID Prescribed by: NIDHI AVILA on 09/30/21956 Oseltamivir Phosphate (Tamiflu) 75 Mg Cap, 75 MG PO BID Prescribed by: MARIO ABRAHAM on 05/13/21 111 Prednisone (Prednisone) 20 Mg Tab, 40 MG PO DAILY Prescribed by: MARIO ABRAHAM on 05/13/211112 Prednisone (Prednisone) 10 Mg Tab.ds.pk, 10 MG PO DAILY Prescribed by: NIDHI AVILA on 09/30/21956 Tizanidine HCl (Zanaflex) 4 Mg Capsule, 4 MG PO TID Prescribed by: NIDHI AVILA on 09/30/21 0957 Tramadol HCl (Ultram) 50 Mg Tablet, 50 MG PO Q4H Prescribed by: NIDHI AVILA on 09/30/21 0958 Review of Systems Review of Systems Constitutional: No chills, No diaphoresis, No malaise, No weakness Eyes: Denies Blurred Vision, Denies Decreased Acuity, Denies Photophobia, Denies Shadows Ears: Denies Dizziness, Denies Pain, Denies Bloody Discharge Nose: denies congestion, denies pain, denies bloody discharge Mouth: denies loose teeth; pain; denies bloody discharge, denies clear discharge Throat: denies pain, denies swelling, denies discharge Respiratory: No cough, No orthopnea, No short of breath Cardiovascular: No chest pain Gastrointestinal: No abdominal pain, No nausea, No vomiting All Other Systems Reviewed Negative Unless Noted: Yes Past Aexiqkb-Gtzvsh-Qntxkh Hx Past Medical History Surgeries: No Respiratory: No Cardiac: No Neurological: No Genitourinary: No Gastrointestinal: No Musculoskeletal: No Endocrine: No HEENT: No Cancer: No Psychosocial: No Integumentary: No Blood Disorders: No Physical Exam Vital Signs Vital Signs - First Documented 08/20/22 20:21 Temp 36.5 Pulse 76 Resp 18 B/P (MAP) 123/69 (87) O2 Delivery Room Air Height, Weight, BMI Height: '" Weight: lbs. oz. kg; BMI Method: General Appearance: WD/WN, no apparent distress Eyes: bilateral eye normal inspection, bilateral eye PERRL, bilateral eye EOMI, bilateral eye abnormal EOM Ears: bilateral ear auricle normal, bilateral ear canal normal, bilateral ear T M normal Nose: normal inspection Mouth/Throat: other (No left upper dental tenderness, swelling or redness. Recent dental extraction to the left lower molars. No gum swelling redness, exudate or fluctuant mass. 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, no motor/sensory deficits, alert, normal mood/affect, oriented x 3 Skin: normal color Progress/Results/Core Measures Results/Orders My Orders Orders - NANI SANDS Hydrocodone/Apap 5/325 Tablet (Lortab 5 (08/20/22 20:45) Medications Given in ED Current Medications Medications Dose Ordered Sig/Oskar Route Start Time Stop Time Status Last Admin Dose Admin Acetaminophen/ Hydrocodone Bitart 1 ea ONCE ONCE PO 08/20/22 20:45 08/20/22 20:46 DC 08/20/22 20:50 1 EA Vital Signs/I&O 08/20/22 20:21 Temp 36.5 Pulse 76 Resp 18 B/P (MAP) 123/69 (87) O2 Delivery Room Air Departure Communication (PCP) Reviewed previous ER visits, outpatient records, lab testing. Differential diagnosis of dry socket, postop infection. Patient had 2 left lower molars extracted at [facility]. She started complaining pain into her left upper jaw today. On exam wounds appear to be healing. No evidence of infectious. Sutures in place. No facial swelling or redness. I would not suspect a dry socket to develop just around 24 hours post tooth extraction. Believe the pain is just secondary to post dental extraction. However if pain progresses would recommend further evaluation with her dentist. Do not think necessarily antibiotics is needed. Discussed swish with warm water. Cool compresses to help with pain. We will provide a few days worth of pain medication. If any worsening symptoms return back to ED for further evaluation Impression Primary Impression: Pain, dental Disposition: HOME, SELF-CARE Condition: Stable Departure-Patient Inst. Decision time for Depature: 20:33 Referrals: [facility] [place] ([place]/Family) Primary Care Physician Patient Instructions: Dental Pain Add. Discharge Instructions: Recommend following up with your dentist on Tuesday. Continue monitoring. If increased redness, swelling to return back to ED. All discharge instructions reviewed with patient and/or family. Voiced understanding. Scripts Hydrocodone/Acetaminophen (Hydrocodone-Acetamin 5-325 mg) 5 Mg-325 Mg Tablet 1 TAB PO Q4H PRN for PAIN-MODERATE (5-7), #8 TAB Prov: NANI SANDS 08/20/22 NANI SANDS Aug 20, 2022 20:34
[2022-08-20] MEDS ORDERED: HYDROcodone/APAP 5 MG/325 MG (LORTAB) TAB PO ONE (20:45)
== END 2022-08-20 20:53 | disposition home or self-care (01) ==
LOC: EDUNIT# 20:09 → ER 20:12
DX: G89.18 Other acute postprocedural pain (principal); K08.89 Other specified disorders of teeth and supporting structures; Z28.310 Unvaccinated for COVID-19
CPT/HCPCS: 99283

== ENCOUNTER → 2023-01-14 | Outpatient (CLI) | payer MEDICAID ==
[~2023-01-14] VITALS: Ht 157.5 cm; Wt 52.2 kg
[~2023-01-14] MED LIST changes: +ACHD5005 PO; +LIDOCAINE 1% INJ 10 ML VIAL INJ ONE; +LIDOCAINE 1% INJ 10 ML VIAL ONE
--- NOTE | 2023-01-14 16:03 | Diagnostic Imaging Report ---
INDICATION: Left breast consultations. PROCEDURE: The patient presents for a stereotactic breast biopsy. The patient was brought is the stereotactic suite and placed in a chair in the sitting upright position. The left breast was positioned lateral medial. The calcifications in the upper outer left breast posterior depth were stereotactically targeted. All images were viewed on a dedicated workstation. The lateral left breast was then prepped and draped in the usual sterile fashion. A small amount of 1% lidocaine was utilized for local anesthesia. An 8-gauge vacuum-assisted needle was advanced from a lateral medial approach and placed per stereotactic coordinates. Four core biopsies were then obtained. Specimen radiograph demonstrates numerous calcifications within samples labeled #2, #3 and #4. Marker clip was then deployed. The needle was removed and hemostasis was obtained. The patient tolerated the procedure well. The patient was sent for postprocedure 2D CC and ML mammogram on dedicated mammographic equipment following the procedure. Images demonstrate a marker clip in the upper outer left breast. IMPRESSION: 1. Successful stereotactic biopsy of calcifications in the upper outer left breast, utilizing the vacuum-assisted device. Pathology results are currently pending. Dictated by: Dictated on workstation # [id number]
== END ==
LOC: RAD 12:45
PROVIDERS: ATTEND Nurse Practitioner
DX: R92.1 Mammographic calcification found on diagnostic imaging of breast (principal); R92.8 Other abnormal and inconclusive findings on diagnostic imaging of breast
CPT/HCPCS: 19081; A4648 ×2